=== PATIENT | female | born 1980 | race Caucasian/White ===

== ENCOUNTER 2023-06-23 01:00 | Outpatient (CLI) | payer OTHER, SELFPAY | END 2023-06-23 01:01 | disposition home or self-care (01) | LOC: NFLDREF 06-27 05:25 | PROVIDERS: Visit Provider Obstetrics & Gynecology | DX: O30.042 Twin pregnancy, dichorionic/diamniotic, second trimester (principal); Z3A.14 14 weeks gestation of pregnancy | CPT/HCPCS: 80053; 82570; 84156 ==

== ENCOUNTER 2023-06-30 07:19 | Outpatient (CLI) | payer OTHER, SELFPAY | END 2023-06-30 07:20 | disposition home or self-care (01) | PROVIDERS: Visit Provider Obstetrics & Gynecology | DX: Z87.59 Personal history of other complications of pregnancy, childbirth and the puerperium (principal) | CPT/HCPCS: 82570; 84156 ==

== ENCOUNTER 2023-08-30 08:11 | Outpatient (CLI) | payer OTHER, SELFPAY ==
--- NOTE | 2023-08-30 08:15 | CRLHL7_ITS ---
For Patients: As a result of the Century Cures Act, medical imaging exams and procedure reports are released immediately into your electronic medical record. You may view this report before your referring provider. If you have questions, please contact your health care provider. DI/DI TWIN GESTATION, GROWTH INDICATION: Third trimester scan, evaluate growth in a twin gestation. COMPARISON: 07/20/2023 TECHNIQUE: Real-time grayscale imaging of the twins was performed. FINDINGS: Sonographic imaging demonstrates a living twin intrauterine gestation. Twin A demonstrates a regular cardiac rate of 142 beats per minute. Twin A has a breech position. The placenta lies posterior. Amniotic fluid volume appears normal and the largest fluid pocket measures 4.9 cm. The estimated weight is 743 gm which lies at the 61st percentile. BPD 15th percentile. HC 26th percentile. AC 67th percentile. FL 46th percentile. The HC/AC ratio measures 1.08 range (1.04-1.22). Twin B demonstrates a regular cardiac rate of 133 beats per minute. Twin B has a vertex position. The placenta lies posterior. Amniotic fluid volume appears normal and the largest fluid pocket measures 6.0 cm. The estimated weight is 739 gm which lies at the 59th percentile. BPD 53rd percentile. HC 41st percentile. AC 67th percentile. FL 33rd percentile. The HC/AC ratio measures 1.10 range (1.04-1.22). IMPRESSION: Appropriate interval growth of the twins. Dictated by Marcial De Luna MD @ 08/30/2023 10:03:17 AM (Electronically Signed)
== END 2023-08-30 08:12 | disposition home or self-care (01) ==
LOC: US 08:13
PROVIDERS: Visit Provider Obstetrics & Gynecology
DX: O30.049 Twin pregnancy, dichorionic/diamniotic, unspecified trimester (principal)
CPT/HCPCS: 76816

== ENCOUNTER 2023-09-27 09:45 | Outpatient (CLI) | payer OTHER, SELFPAY ==
--- NOTE | 2023-09-27 09:45 | US_ITS ---
Patient: ANUM KAYE Facility:?[facility] Patient ID:?[id number] Site Patient ID:?[id number]. Site :?1980 Study:?US-OB Pelvis f/u growth TWINS-09/27/2023 10:47:53 AM Ordering Physician:?SUPPROMÁN Final Report: 3rd TRIMESTER TWIN GROWTH INDICATION: Third trimester scan, evaluate growth in a twin gestation. COMPARISON: 08/30/2023 TECHNIQUE: Real-time grayscale imaging of the twins was performed. FINDINGS: Sonographic imaging demonstrates a living twin intrauterine gestation. Twin A demonstrates a regular cardiac rate of 157 beats per minute. Twin A has a vertex position, maternal right. The placenta lies posterior. Amniotic fluid volume appears normal and the largest fluid pocket measures 4.4 cm. The estimated weight is 1338 gm which lies at the 64th percentile. The biometric indices all lie within normal range. The HC/AC ratio measures 1.07 range (0.99-1.21). Twin B demonstrates a regular cardiac rate of 144 beats per minute. Twin B has a vertex position, maternal left. The placenta lies posterior. Amniotic fluid volume appears normal and the largest fluid pocket measures 6.2 cm. The estimated weight is 1399 gm which lies at the 77th percentile. The biometric indices all lie within normal range. The HC/AC ratio measures 1.11 range (0.98-1.19). IMPRESSION: Appropriate interval growth of the twins. Dictated by Marcial De Luna MD @ 09/27/2023 11:04:07 AM Signed by:?Marcial De Luna MD @09/27/2023 11:04:07 AM (Electronic Signature)
== END 2023-09-27 09:46 | disposition home or self-care (01) ==
LOC: US 09:45
PROVIDERS: Visit Provider Obstetrics & Gynecology
DX: O30.043 Twin pregnancy, dichorionic/diamniotic, third trimester (principal)
CPT/HCPCS: 76816

== ENCOUNTER 2023-09-27 11:02 | Outpatient (CLI) | payer OTHER, SELFPAY | END 2023-09-27 11:03 | disposition home or self-care (01) | LOC: NFLDREF 11:03 | PROVIDERS: Visit Provider Obstetrics & Gynecology | DX: O30.043 Twin pregnancy, dichorionic/diamniotic, third trimester (principal); Z3A.28 28 weeks gestation of pregnancy | CPT/HCPCS: 86592; 86850; J2791 ==

== ENCOUNTER 2023-10-25 07:21 | Outpatient (CLI) | payer OTHER, SELFPAY ==
--- NOTE | 2023-10-25 07:15 | US_ITS ---
Patient: ANUM KAYE Facility:?[facility] Patient ID:?[id number] Site Patient ID:?[id number]. Site :?1980 Study:?US-OB Pelvis BPP w/growth, TWINS-10/25/2023 9:22:52 AM Ordering Physician:JUAN PABLO Final Report: OBSTETRICAL ULTRASOUND LIMITED - BIOPHYSICAL PROFILE, FOLLOW-UP INDICATION: Biophysical profile and growth check, twins. DOMINGO by LMP: 12/17/2023 Gestational age: 32 weeks 3 days COMPARISON: 09/27/2023, 08/30/2023 TECHNIQUE: Transabdominal obstetrical ultrasound. FINDINGS: Twin gestation. TWIN A: Cervix: Not visualized positioning: Vertex, right Amniotic fluid: 4.5 cm SDP BIOPHYSICAL PROFILE: Total score: 6/8 Gross body movements: 2 tone: 2 Respiratory activity: 0 Amniotic fluid SDP: 2 Placenta position: Posterior DOPPLERS: heart rate: 137 bpm BIOMETRY: BPD: 8.1 cm, 32 weeks 2 days, 39% HC: 30.3 cm, 33 weeks 4 days, 45% AC: 29.2 cm, 33 weeks 1 day, 71% FL: 6.1 cm, 31 weeks 6 days, 22% FL/AC Ratio: 21% HC/AC ratio: 1.0 EFW: 2039 grams, 4 lbs. 8 oz. age by this ultrasound: 32 weeks 5 days DOMINGO by this US: 12/15/2023 Percentile by DOMINGO: 50% Comments: Respiratory activity is seen, not for 30 seconds. Growth = 50%. TWIN B: Cervix: Not visualized positioning: Vertex, oblique left Amniotic fluid: 6.4 cm SDP BIOPHYSICAL PROFILE: Total score: 6/8 Gross body movements: 2 tone: 2 Respiratory activity: 0 Amniotic fluid SDP: 2 Placenta position: Posterior DOPPLERS: heart rate: 132 bpm BIOMETRY: BPD: 8.5 cm, 34 weeks 1 day, 87% HC: 32.0 cm, 36 weeks 1 day, 95% AC: 31.4 cm, 35 weeks 3 days, >97% FL: 6.2 cm, 32 weeks 2 days, 32% FL/AC Ratio: 20% HC/AC ratio: 1.0 EFW: 2440 grams, 5 lbs. 6 oz. age by this ultrasound: 34 weeks 4 days DOMINGO by this US: 12/02/2023 Percentile by DOMINGO: 94% Comments: Respiratory activity is seen, not for 30 seconds. Growth = 94%. IMPRESSION: 1. Abnormal biophysical profile score of 6/8 for both twins. 2. Measurements are consistent with dates for both twins. DAXA LIU M.D. Body/Diagnostic Radiologist [employer] [email or web address] NJG:cindy D& Transcribed: 1:[address]/Dictated by: Daxa Liu MD @ 10/26/2023 1:01:00 PM Signed by:?Daxa Liu MD @10/26/2023 1:58:46 PM (Electronic Signature)
== END 2023-10-25 07:22 | disposition home or self-care (01) ==
PROVIDERS: Visit Provider Obstetrics & Gynecology
DX: O30.043 Twin pregnancy, dichorionic/diamniotic, third trimester (principal); Z3A.32 32 weeks gestation of pregnancy
CPT/HCPCS: 76816; 76819

== ENCOUNTER 2023-11-01 08:16 | Outpatient (CLI) | payer OTHER, SELFPAY ==
--- NOTE | 2023-11-01 08:15 | US_ITS ---
Patient: ANUM KAYE Facility:?[facility] Patient ID:?[id number] Site Patient ID:?[id number]. Site :?1980 Study:?US-OB Pelvis TWIN BPP-11/01/2023 9:06:24 AM Ordering Physician:JENNY GAMEZ Final Report: INDICATION: TWIN , DI/DI TWINS COMPARISON: 10.25.23 TECHNIQUE: Real time tobias scale imaging of the twins was performed. Without non-stress testing. FINDINGS: Sonographic imaging demonstrates a twin living intrauterine gestation. TWIN A: Fetus demonstrates a regular cardiac rate of 135 beats per minute. Fetus has a cephalic position. The amniotic fluid volume appears normal and there is a single deepest pocket measurement of 5.3 cm. The fetus was active and demonstrated normal breathing movements. There was normal flexion and extension of the trunk and extremities. TWIN B: Fetus demonstrates a regular cardiac rate of 149 beats per minute. Fetus has a vertex position. The amniotic fluid volume appears normal and there is a single deepest pocket measurement of 8.0 cm. The fetus was active and demonstrated normal breathing movements. There was normal flexion and extension of the trunk and extremities. IMPRESSION: TWIN A: Normal biophysical profile score of 8 out of 8. TWIN B: Normal biophysical profile score of 8 out of 8. Dictated by Marcial De Luna MD @ 11/01/2023 8:38:09 PM Signed by:?Marcial De Luna MD @11/01/2023 8:38:09 PM (Electronic Signature)
== END 2023-11-01 08:17 | disposition home or self-care (01) ==
LOC: US 08:17
PROVIDERS: Visit Provider Obstetrics & Gynecology
DX: O30.049 Twin pregnancy, dichorionic/diamniotic, unspecified trimester (principal)
CPT/HCPCS: 76819

== ENCOUNTER 2023-11-10 09:11 | Outpatient (CLI) | payer OTHER, SELFPAY ==
--- NOTE | 2023-11-10 09:15 | US_ITS ---
Patient: ANUM KAYE Facility:?[facility] Patient ID:?[id number] Site Patient ID:?[id number] Site :?1980 Study:?US-OB Pelvis TWIN BPP-11/10/2023 10:21:42 AM Ordering Physician:JENNY GAMEZ Final Report: INDICATION: DI-DI TWIN COMPARISON: 11/01/2023 TECHNIQUE: Real time tobias scale imaging of the twin was performed. Without non-stress testing. FINDINGS: Sonographic imaging demonstrates a twin living intrauterine gestation. TWIN A: Fetus demonstrates a regular cardiac rate of 155 beats per minute. Fetus has a vertex position, maternal right. The amniotic fluid volume appears normal and there is a single deepest pocket measurement of 5.5 cm. The fetus was active and demonstrated normal breathing movements. There was normal flexion and extension of the trunk and extremities. TWIN B: Fetus demonstrates a regular cardiac rate of 134 beats per minute. Fetus has a transverse position, maternal left. The amniotic fluid volume appears normal and there is a single deepest pocket measurement of 5.4 cm. The fetus was active and demonstrated normal breathing movements. There was normal flexion and extension of the trunk and extremities. IMPRESSION: Twin A: Normal biophysical profile score of 8 out of 8. Twin B: Normal biophysical profile score of 8 out of 8. Dictated by Marcial De Luna MD @ 11/16/2023 10:58:21 AM Signed by:?Marcial De Luna MD @11/16/2023 10:58:21 AM (Electronic Signature)
== END 2023-11-10 09:12 | disposition home or self-care (01) ==
PROVIDERS: Visit Provider Obstetrics & Gynecology
DX: O30.049 Twin pregnancy, dichorionic/diamniotic, unspecified trimester (principal)
CPT/HCPCS: 76819

== ENCOUNTER 2023-11-10 10:43 | Outpatient (CLI) | payer OTHER, SELFPAY ==
[2023-11-11 12:13] LABS: Strep B DNA Probe Negative (Negative)
[2023-11-11 12:31] LABS: Strep B Susceptibility Needed? No
== END 2023-11-10 10:44 | disposition home or self-care (01) ==
LOC: NFLDREF 10:44
PROVIDERS: Visit Provider Obstetrics & Gynecology
DX: O09.523 Supervision of elderly multigravida, third trimester (principal); Z3A.34 34 weeks gestation of pregnancy
CPT/HCPCS: 87081; 87653

== ENCOUNTER 2023-11-11 14:17 | Outpatient (CLI) | payer OTHER, SELFPAY ==
[2023-11-11] VITALS (8 sets, daily range): BP systolic 117–134; BP diastolic 72–80; PULSE 87–102; RESP 16; TEMP 36.4
[2023-11-11 14:45] LABS: Hematocrit 33.7 % (33.0-51.0); Hemoglobin* 12.1 gm/dL (12.0-16.0); Mean Corpuscular HGB Conc 36 gm/dL (32-36); Mean Corpuscular Hemoglobin 30 pg (26-34); Mean Corpuscular Volume 85 fL (80-100); Platelet Count* 185 K/uL (140-440); Red Blood Count 3.99 m/uL (4.00-5.20); White Blood Count* 9.19 K/uL (4.50-11.00)
[2023-11-11 14:50] LABS: Slide Review Reflex No
[2023-11-11 15:01] LABS: Alanine Aminotransferase* 60 U/L (4-35); Aspartate Amino Transferase* 48 U/L (12-35); Blood Urea Nitrogen* 6 mg/dL (5-24); Creatinine* 0.4 mg/dL (0.5-1.5); Estimated Glomerular Filt Rate 127 ml/min
[2023-11-11 15:32] LABS: Creatinine Urine 12.7 mg/dL; Total Protein Urine 24 mg/dL
[2023-11-11] MEDS: BETAMETHASONE SOD PHOS/ACETATE 6 MG/ML ML 12 MG IM (16:01)
--- NOTE | 2023-11-11 16:34 | PC.OBNST ---
NST Note NST Note Start: 11/11/23 14:20 Freq: ONCE Status: Active Protocol: Document 11/11/23 16:32 BAW (Rec: 11/11/23 16:34 BAW [id number]) NST Note 11 Para (# of births) 7 EDC 12/17/23 Gestational Age In Weeks & Days 34 Weeks & 6 Days High Risk Factors High Blood Pressure - Gestational,Advanced Maternal Age,Twins Patient Presented with Complaint(s) of Other Other Complaints Rule out PreE Reactive Yes Appropriate for Gestational Age Yes BERTRAND Torres RNC Date 11/11/23 Reactive Yes Appropriate for Gestational Age Yes BERTRAND Mojica RN Date 11/11/23 OB NST charge Yes Complete NST Note via Write Note Yes The provider's electronic signature indicates the NST is reactive/appropriate for gestational age. *Note to provider: If an addendum is required, open the patient's chart and click on the note under the Nurse/Allied Health tab.
== END 2023-11-11 16:21 | disposition home or self-care (01) ==
LOC: OB OUT 14:17 → OB 14:18
PROVIDERS: Obstetrics & Gynecology; Visit Provider Obstetrics & Gynecology
DX: O26.893 Other specified pregnancy related conditions, third trimester (principal); R03.0 Elevated blood-pressure reading, without diagnosis of hypertension; O30.043 Twin pregnancy, dichorionic/diamniotic, third trimester; Z3A.34 34 weeks gestation of pregnancy
CPT/HCPCS: 36415; 59025; 82565; 82570; 84156; 84450; 84460; 84520; 85027; G0463; J0702

== ENCOUNTER 2023-11-12 14:20 | Outpatient (CLI) | payer OTHER, SELFPAY | END 2023-11-12 14:21 | disposition home or self-care (01) | PROVIDERS: PCP Obstetrics & Gynecology; Visit Provider Obstetrics & Gynecology | DX: O09.523 Supervision of elderly multigravida, third trimester (principal); O30.043 Twin pregnancy, dichorionic/diamniotic, third trimester; Z3A.34 34 weeks gestation of pregnancy | CPT/HCPCS: 80074; 82565; 82570; 84156; 84450; 84460; 84520; 86850; 86900; 86901 ==

== ENCOUNTER 2023-11-12 17:24 | Inpatient (IN) | payer OTHER, SELFPAY ==
[2023-11-12] VITALS (78 sets, daily range): BP systolic 112–144; BP diastolic 57–86; PULSE 93–119; RESP 16; TEMP 36.7–37; O2SAT 97–100
--- NOTE | 2023-11-12 17:41 | PM.OBHPLI ---
OB - H&P: HPI Labor/Induction History of Present Illness Time Seen by Provider: 17:41 Date Seen: 11/12/23 Chief Complaint: Juana is a 43yo who was sent to triage for BP monitoring in the setting of worsening transaminitis with elevated BP without hypertension at 35w0d. is complicated by dichorionic diamniotic twin gestation, grand multiparity, history of hemorrhage, history of hypertensive disorder of , advanced maternal age, history hemorrhage, and GERD. Juana has been feeling unwell for the last several days. Last week she notes a viral gastroenteritis went through her household. She was feeling better, until she had return of nausea and feeling off the last few days. Specifically, she has noted intermittent episodes where she has tingling in her hands or feet and worsening GERD. She had 1 mild range blood pressure on 11/09. She was seen in close follow-up yesterday, ultimately transferred to triage where she was normotensive but had note of transaminitis. She return to clinic today for repeat preeclampsia labs and nurse blood pressure check. There, her blood pressure remained normal but transaminitis was noted to significantly rise to double the upper limit of normal. I visit with Christiane joya recommended she be transferred to center for blood pressure monitoring given likely of all vein preeclampsia with severe features. She was monitored in triage for just over an hour, when she met criteria visually for preeclampsia with severe features with a 2nd mild range blood pressure greater than 4 hours apart. Juana denies headache, vision changes or right upper quadrant pain. She denies regular/painful uterine contractions, vaginal bleeding or leaking of fluids. Notes some decreased movement of her babies throughout the course of the day, active at present. Chief complaint: Maternity Specific Issues/Plans 1. Dichorionic Diamniotic twin gestation 2. History of preE: [x] MFM consult with early US - normal NT x2, declined genetic screening [x] MFM recommendations are as follows: [x ] level 2 US at 18-20 weeks: 07/20/23: Normal anatomy x2 [x] continue ASA 81mg [x] CMP, CBC and urine P/C ratio at next visit: collected on 06/23/23. Baseline P/C 06/23= 2.90, Repeat on 06/30 0.9. 06/30/23: Baseline 24hr urine protein = 856mg - q2w visits in the third trimester, weekly beginning 32-34 weeks - Growth US every 4 weeks - weekly testing starting at 36 weeks - Medically indicated delivery at 38 weeks, sooner as needed [x] Nephrology Consult: BP monitoring (meds if 130/80), low salt diet, repeat 24 hour in August [x] 11/10/2023 Elevated BP at home, L&D on 11/10: normal BP. hgb 12.1, plts 185, AST 48, ALT 60, BUN 6, Creat 0.4, Urine P/C 1.8 Repeat 24hour urine for protien: [] Repeat labs on 11/12/2023 BMTZ #1 11/11/2023 in L&D BMTZ #2 11/12/2023 in clinic Needs 2x/week testing and weekly labs if she remains undelivered. 3. Grandmultiparity: Has 7 children. 4. Advanced Maternal Age 5.History of loss, attributed to low progesterone - Pt is on progesterone supplementation, 200mg micronized progesterone daily, managed by a remote clinic in [place]. - Discontinue at 36 weeks -2019, blighted ovum with excessive vaginal bleeding, had D&C performed, uncomplicated surgery and pathology confirmed immature chorionic villi 7. Varicella status unknown - please add IgG to subsequent lab draw - Patient declines FYI patient is self pay with supplement via [employer] co[employer] *Strongly encouraged enrolling in insurance* Please provide [place] Sure pamphlet at next visit. - Patient declines information Tdap: declined. She does not want to be asked again. contraception: None Meds Home Medications and Allergies Home Medications Medication Instructions Recorded Confirmed Type aspirin 81 mg capsule 81 mg PO QDAY 05/27/23 11/11/23 History docosahexaenoic acid 200 mg 200 mg PO DAILY 05/27/23 11/11/23 History capsule ( DHA) ferrous gluconate 240 mg (27 mg 240 mg PO QDAY 05/27/23 11/11/23 History iron) tablet (Ferate) progesterone micronized 200 mg 200 mg PO QHS 05/27/23 11/11/23 History capsule calcium carbonate (Calcium 600) 600 mg PO QDAY 07/21/23 11/11/23 History Allergies Allergy/AdvReac Type Severity Reaction Status Date / Time No Known Drug Allergies Allergy Verified 11/11/23 14:28 OB - H&P: Exam Physical Exam: Vital signs: Temp Pulse Resp BP Pulse Ox 98.6 F 96 16 142/86 H 99 11/12/23 16:44 11/12/23 17:14 11/12/23 16:44 11/12/23 17:14 11/12/23 16:45 Narrative: General: Alert and oriented, in no acute distress Psych: Appropriate mood and affect Heart: Regular rate and rhythm, no rubs murmurs or gallops Lungs: Clear to posterior auscultation without wheezes rales or crackles Abdomen: Gravid. Slight tenderness to deep palpation in the right upper quadrant. Bedside ultrasound performed, twins are cephalic/cephalic. Last growth ultrasound was completed on 10/25/2023, with twin A measuring 2039 g and twin B measuring 2440 g. 16% discordance. Cervix: 08/21/-3, s/p cook catheter placement heart rate Twin A: Baseline 130 beats per minute, moderate variability, accelerations present, decelerations absent FHR Twin B: Baseline 125 beats per minute, moderate variability, accelerations present, decelerations absent [place]: Alfa irregularly, about once every 15 minutes OB - Problem Based A/P Additional Plan (1) Preeclampsia, severe: Status: Acute (2) Dichorionic diamniotic twin gestation: Status: Acute (3) Advanced maternal age (AMA) in : Status: Acute (4) Grand multiparity: Status: Acute (5) History of pre-eclampsia: Status: Acute (6) Transaminitis: Status: Acute (7) History of hemorrhage: Status: Acute Plan Juana is a 43yo admitted at 35w0d GA for IOL in the setting of preeclampsia with SF (transaminitis). is complicated by dichorionic diamniotic twin gestation, grand multiparity, history of hemorrhage, history of hypertensive disorder of , advanced maternal age, history hemorrhage, and GERD. Juana now meets criteria for preeclampsia with severe features, given to mild range blood pressures by greater than 4 hours and transaminitis to double the upper limit of normal. - Plan to admit to Labor and delivery and initiate magnesium sulfate for seizure prophylaxis. Explained this will be continued intrapartum in for 24 hours post delivery. - Serial HELLP labs Q6H - We have started her induction of labor with cook catheter (60/60cc) given cervical exam of 3. Plan to start pitocin overnight. We reviewed risks and benefits of twin vaginal delivery. At present, her twins are cephalic/cephalic. She understands we will immediately assess presentation of twin B after delivery of twin A. If non-cephalic, she understands possible breech extraction and risks of head entrapment and life-saving measures that could be completed (cervical incisions, Piper forceps, delivery, etc.) She is a good candidate for breech extraction if required, given multiparity, EFW >1500g and discordance of <20%. - Patient plans regional anesthetic for pain control - s/p BMZ #2 in the clinic at 1600 - GBS negative - Active type and screen drawn, plan 2 IVs and active management of the 3rd stage in the setting of history of hemorrhage, grand multiparity and multi- gestation. - Pediatrics team to be made aware of delivery. I explained that her babies will be assessed post delivery, where there is a chance that they may still need to be transferred if NICU level cares were required. Explained anticipated hospitalization for Juana would be for 48 hours post delivery, given preeclampsia with severe features. She expressed understanding and is agreement plan.
[2023-11-12] MEDS: LACTATED RINGERS 1000 ML 1,000 ML 75 ML IV (17:53)
[2023-11-12] MEDS: MAGNESIUM IV 4 GM/100 ML PIGGYBACK IVPB (17:54)
[2023-11-12] MEDS: MAGNESIUM Infusion 40 GM/1,000 ML IV.SOLN IVPB (18:29)
[2023-11-12 21:10] LABS: Hematocrit 33.6 % (33.0-51.0); Hemoglobin* 12.1 gm/dL (12.0-16.0); Mean Corpuscular HGB Conc 36 gm/dL (32-36); Mean Corpuscular Hemoglobin 30 pg (26-34); Mean Corpuscular Volume 84 fL (80-100); Platelet Count* 209 K/uL (140-440); Red Blood Count 3.98 m/uL (4.00-5.20); White Blood Count* 13.09 K/uL (4.50-11.00)
[2023-11-12 21:19] LABS: Slide Review Reflex No
[2023-11-12 21:29] LABS: Alanine Aminotransferase* 142 U/L (4-35); Aspartate Amino Transferase* 96 U/L (12-35); Blood Urea Nitrogen* 4 mg/dL (5-24); Creatinine* 0.4 mg/dL (0.5-1.5); Estimated Glomerular Filt Rate 127 ml/min
[2023-11-12 21:53] LABS: Magnesium* 4.3 mg/dL (1.5-2.6)
[2023-11-13] VITALS (176 sets, daily range): BP systolic 101–144; BP diastolic 55–87; PULSE 76–130; RESP 16–18; TEMP 36.4–36.8; O2SAT 92–100
[2023-11-13] MEDS: OMEPRAZOLE 20 MG CAPSULE DR 40 MG PO (00:02)
[2023-11-13] MEDS: OXYTOCIN 30 unit/500 ML in NS 30 UNIT/500 ML BAG IVPB (01:42)
[2023-11-13 03:20] LABS: Hematocrit 31.5 % (33.0-51.0); Hemoglobin* 11.3 gm/dL (12.0-16.0); Mean Corpuscular HGB Conc 36 gm/dL (32-36); Mean Corpuscular Hemoglobin 31 pg (26-34); Mean Corpuscular Volume 85 fL (80-100); Platelet Count* 207 K/uL (140-440); Red Blood Count 3.69 m/uL (4.00-5.20); White Blood Count* 11.53 K/uL (4.50-11.00)
[2023-11-13 03:23] LABS: Slide Review Reflex No
[2023-11-13 03:30] LABS: Alanine Aminotransferase* 187 U/L (4-35); Aspartate Amino Transferase* 119 U/L (12-35); Blood Urea Nitrogen* 3 mg/dL (5-24); Creatinine* 0.4 mg/dL (0.5-1.5); Estimated Glomerular Filt Rate 127 ml/min
[2023-11-13] MEDS: LACTATED RINGERS 1000 ML 1,000 ML 75 ML IV (07:22)
--- NOTE | 2023-11-13 08:10 | P.OBPN_ITS ---
Subjective Time Seen by Provider: 08:10 Date Seen: 11/13/23 Narrative: Subjective: 11 para 7037. Induction of labor at 35 weeks 1 day gestation for severe preeclampsia by liver transaminase elevation, twins. Patient is comfortable without an epidural. She has been having contractions every 10-12 minutes. Pitocin: 8 milliunits/minute. Vital signs: Per electronic medical record. EFM: Twin A: Baseline 130s, positive accelerations, negative decelerations, moderate variability, reactive. Category 1. Twin B: Baseline 130, positive accelerations, negative decelerations, moderate variability, reactive. Category 1. [place]: Contractions every 8-12 minutes. SVE: Deferred Labs at 3:00 a.m. today: Hemoglobin 11.3, platelets 207, BUN 3, creatinine 0.4, AST 119 (96), ALT 187 (142). Assessment: 43-year-old 11 para 7 at 35 weeks 1 days gestation undergoing induction of labor due to preeclampsia. Plan: 1. Continue Pitocin per labor induction protocol. 2. Planning for labor analgesia: She is planning on having the epidural catheter placed prior to my rupturing her membranes and then have it dosed when she has painful contractions. Also planning on going to the operating room for delivery relatively early in the active phase as she has a history of very short active phase and stage II with her last 3 children. 3. Adding comprehensive metabolic panel to her next lab draw. Objective Vital Signs: Last Vital Signs Temp 97.9 F 11/13/23 07:30 Pulse 101 H 11/13/23 07:59 Resp 16 11/13/23 00:59 BP 125/75 11/13/23 07:59 Pulse Ox 100 11/13/23 08:08
[2023-11-13] MEDS: SODIUM CHLORIDE 0.9 % (FLUSH) 10 ML SYRINGE IVF (09:02)
[2023-11-13 09:05] LABS: Hematocrit 33.6 % (33.0-51.0); Hemoglobin* 11.9 gm/dL (12.0-16.0); Mean Corpuscular HGB Conc 35 gm/dL (32-36); Mean Corpuscular Hemoglobin 30 pg (26-34); Mean Corpuscular Volume 86 fL (80-100); Platelet Count* 206 K/uL (140-440); Red Blood Count 3.91 m/uL (4.00-5.20); White Blood Count* 11.94 K/uL (4.50-11.00)
[2023-11-13 09:08] LABS: Slide Review Reflex Yes
[2023-11-13 09:18] LABS: Chloride* 103 mmol/L (96-114)
[2023-11-13 09:19] LABS: Albumin* 3.3 g/dL (3.3-5.0); Potassium* 3.4 mmol/L (3.6-5.1); Sodium* 127 mmol/L (135-149)
[2023-11-13 09:22] LABS: Alanine Aminotransferase* 244 U/L (4-35); Alkaline Phosphatase* 145 U/L (40-150); Anion Gap 4 mEq/L (7-15); Aspartate Amino Transferase* 150 U/L (12-35); Bilirubin Total* 0.4 mg/dL (0.1-1.5); Blood Urea Nitrogen* 2 mg/dL (5-24); Carbon Dioxide* 20 mmol/L (20-32); Creatinine* 0.4 mg/dL (0.5-1.5); Est. Creatinine Clearance* 158.21; Estimated Glomerular Filt Rate 127 ml/min; Total Protein* 5.9 g/dL (6.0-8.3)
[2023-11-13 09:23] LABS: Alanine Aminotransferase* 240 U/L (4-35); Aspartate Amino Transferase* 151 U/L (12-35); Blood Urea Nitrogen* 2 mg/dL (5-24); Calcium* 6.4 mg/dL (8.4-10.6); Creatinine* 0.4 mg/dL (0.5-1.5); Est. Creatinine Clearance* 158.21; Estimated Glomerular Filt Rate 127 ml/min; Glucose* 100 mg/dL (60-115)
[2023-11-13 09:27] LABS: Magnesium* 5.9 mg/dL (1.5-2.6)
--- NOTE | 2023-11-13 09:46 | P.ANBPRC_ITS ---
PFSH PFSH Social History What is your current living situation?: I presently have a place to live Problems where you live: no known problems In the past 12 months, utilities in danger of being shut off: no In past 12 months, lack of transportation kept you from medical appts, meetings, work, or getting things needed for daily living: no In the past 12 mos, have been you worried that your food would run out before you had money to buy more?: never true In the past 12 mos, the food you bought just didn't last and you didn't have money to buy more?: never true Smoking Status: Never smoker How often does anyone, including family, friends and others, physically hurt you : never How often does anyone, including family, friends and others, insult or talk down to you: never How often does anyone, including family, friends and others, threaten you with harm: never How often does anyone, including family, friends and others, scream or curse at you: never Little interest or pleasure in doing things: not at all Feeling down, depressed, or hopeless: not at all Meds Home Medications and Allergies Home Medications Medication Instructions Recorded Confirmed Type aspirin 81 mg capsule 81 mg PO QDAY 05/27/23 11/12/23 History docosahexaenoic acid 200 mg 200 mg PO DAILY 05/27/23 11/12/23 History capsule ( DHA) ferrous gluconate 240 mg (27 mg 240 mg PO QDAY 05/27/23 11/12/23 History iron) tablet (Ferate) progesterone micronized 200 mg 200 mg PO QHS 05/27/23 11/12/23 History capsule calcium carbonate (Calcium 600) 600 mg PO QDAY 07/21/23 11/12/23 History Allergies Allergy/AdvReac Type Severity Reaction Status Date / Time No Known Drug Allergies Allergy Verified 11/11/23 14:28 Results Labs Labs: Laboratory Results - last 24 hr 11/12/23 11/12/23 11/13/23 16:50 21:03 03:05 WBC 13.09 H 11.53 H RBC 3.98 L 3.69 L Hgb 12.1 11.3 L Hct 33.6 31.5 L MCV 84 85 MCH 30 31 MCHC 36 36 Plt Count 209 207 Sodium Potassium Chloride Carbon Dioxide Anion Gap BUN 4 L 3 L Creatinine 0.4 L 0.4 L Estimated Creat Clear Estimated GFR 127 127 Glucose Calcium Magnesium 4.3 H* 5.0 H* Total Bilirubin AST 96 H 119 H ALT 142 H 187 H Alkaline Phosphatase Total Protein Albumin Hepatitis A IgM Ab Cancelled Hep Bs Antigen Cancelled Hep B Core IgM Ab Cancelled Hep C Ab Index (STEPHAN) Cancelled Hep C Ab Interp STEPHAN Cancelled Hepatitis Interpret Cancelled Blood Type A Negative Antibody Screen POSITIVE Antibody Identification Anti-D 11/13/23 11/13/23 11/13/23 09:00 09:00 09:00 WBC 11.94 H RBC 3.91 L Hgb 11.9 L Hct 33.6 MCV 86 MCH 30 MCHC 35 Plt Count 206 Sodium 127 L Potassium 3.4 L Chloride 103 Carbon Dioxide 20 Anion Gap 4 L BUN 2 L 2 L Creatinine 0.4 L 0.4 L Estimated Creat Clear 158.21 Estimated GFR Glucose Calcium Magnesium Total Bilirubin AST ALT Alkaline Phosphatase Total Protein Albumin Hepatitis A IgM Ab Hep Bs Antigen Hep B Core IgM Ab Hep C Ab Index (STEPHAN) Hep C Ab Interp STEPHAN Hepatitis Interpret Blood Type Antibody Screen Antibody Identification 11/13/23 11/13/23 11/13/23 09:00 09:00 09:00 WBC RBC Hgb Hct MCV MCH MCHC Plt Count Sodium Potassium Chloride Carbon Dioxide Anion Gap BUN Creatinine Estimated Creat Clear 158.21 Estimated GFR 127 127 Glucose 100 Calcium 6.4 L Magnesium 5.9 H* Total Bilirubin 0.4 AST 151 H 150 H ALT 240 H Alkaline Phosphatase Total Protein Albumin Hepatitis A IgM Ab Hep Bs Antigen Hep B Core IgM Ab Hep C Ab Index (STEPHAN) Hep C Ab Interp STEPHAN Hepatitis Interpret Blood Type Antibody Screen Antibody Identification 11/13/23 09:00 WBC RBC Hgb Hct MCV MCH MCHC Plt Count Sodium Potassium Chloride Carbon Dioxide Anion Gap BUN Creatinine Estimated Creat Clear Estimated GFR Glucose Calcium Magnesium Total Bilirubin AST ALT 244 H Alkaline Phosphatase 145 Total Protein 5.9 L Albumin 3.3 Hepatitis A IgM Ab Hep Bs Antigen Hep B Core IgM Ab Hep C Ab Index (STEPHAN) Hep C Ab Interp STEPHAN Hepatitis Interpret Blood Type Antibody Screen Antibody Identification Vital Signs Vital Signs: Last Vital Signs Temp 97.9 F 11/13/23 07:30 Pulse 114 H 11/13/23 09:35 Resp 16 11/13/23 00:59 BP 121/71 11/13/23 09:35 Pulse Ox 98 11/13/23 09:31 Weight: 79.424 kg Height: 162.56 cm Anesthesia Procedures Epidural Insertion Patient Location: OB Start Time: :05 Stop Time: 09:30 Start Date: 11/13/23 Stop Date: 11/13/23 Reason for Block: procedure for pain Patient Position: sitting Performed By: Salomón Cheek Preanesthetic Checklist: IV checked, risks and benefits discussed, monitors and equipment checked, pre-op evaluation, timeout performed and anesthesia consent Prep: chlorhexidine gluconate Monitoring: blood pressure monitoring, continuous pulse oximetry and heart rate Approach: midline Vertebral Space: lumbar (1-5) Epidural Technique: YOEL saline Needle Type: Tuohy needle Injection Technique: continuous catheter Needle gauge: 17 Needle Length (cm): 10 cm Needle Insertion Depth (cm): 6 Catheter Gauge: 19 Catheter Type: multi-orifice Catheter at skin depth (cm): 12 Test Dose Result: negative (Did not load epidural or start infusion at time of placement due to patient request. ) and lidocaine 1.5% with epinephrine 1 to 200,000
[2023-11-13 12:00] LABS: Slide Review Acceptable Review (Acceptable)
[2023-11-13] MEDS: CALCIUM CARBONATE 500 MG CHEW PO (12:13)
[2023-11-13] MEDS: TRANEXAMIC ACID 100 MG/ML INJ 1000 MG IV (13:33)
[2023-11-13] MEDS: MAGNESIUM Infusion 40 GM/1,000 ML IV.SOLN IVPB (14:40)
[2023-11-13] MEDS: LIDOCAINE 2% (PF) 5 ML VIAL EPIDURAL (15:15)
[2023-11-13] MEDS: miSOPROStoL 800 MCG/4 TABLET PR (15:38)
[2023-11-13] MEDS: LOPERAMIDE HCL 2 MG CAPSULE 4 MG PO (15:40)
[2023-11-13] MEDS: dexAMETHasone 4 MG/ML VIAL IV (16:05)
[2023-11-13 16:12] LABS: Hematocrit 32.2 % (33.0-51.0); Hemoglobin* 11.3 gm/dL (12.0-16.0); Mean Corpuscular HGB Conc 35 gm/dL (32-36); Mean Corpuscular Hemoglobin 30 pg (26-34); Mean Corpuscular Volume 86 fL (80-100); Platelet Count* 215 K/uL (140-440); Red Blood Count 3.73 m/uL (4.00-5.20)
[2023-11-13] MEDS: ACETAMINOPHEN 500 MG TABLET 1000 MG PO (16:20)
--- NOTE | 2023-11-13 16:23 | W.PM.VAGD1_ITS ---
Procedure Delivery date: 11/13/23 Procedure Done: Global Procedure Details: Procedures Operation Date: 11/13/23 12:15 <No data on this case meets the specified criteria> Juana is a 43 year-old G 11 P 7037 now P 8039 admitted on 11/12/2023 at [address] e[address], 0 Days gestation for induction of labor due to severe preeclampsia by liver transaminases. Di/di twins Twin A: AROM occurred at 10:36 a.m. on 11/13/2023 with clear fluid. Twin B: AROM occurred at 3:28 p.m. on 11/13/2023 with clear fluid Labor Analgesia: Epidural for twin B, no analgesia for twin a Pitocin: Yes Labor onset: 11/13/2023 at 11:52 a.m.. Complete: 11/13/2023 at 2:56 p.m.. Pushin11/13/2023 at 2:56 p.m.. heart tones during second stage were: Category 1. Twin A: At 2:57 p.m. a viable male infant delivered in vertex direct OA presentation over intact perineum via spontaneous vaginal delivery. The was placed on maternal abdomen. Cord was clamped and cut after a 30-60 second delay. Nose and mouth were bulb suctioned. Infant weight 5 lb 0 oz. 8 at 1 minute and 9 at 5 minutes. Shoulder dystocia: No. Nuchal cord: No. The patient had her epidural dosed after twin a was delivered to give analgesia for total breech extraction. Bedside ultrasound was performed to show twin B in footling breech presentation after delivery of twin a. Heart rate for twin B in the 2nd stage was category 2 with moderate variability and variable decelera tions to the 90s during contractions with immediate return to baseline after the contraction completed. Twin B: At 3:31 p.m. a viable male delivered from footling breech presentation over intact perineum by total breech extraction . The infant was placed on maternal abdomen. Cord was clamped and cut after a 10 second delay. Nose and mouth were bulb suctioned. Infant weight 5 lb 11 oz. 8 at 1 minute and 9 at 5 minutes. Shoulder dystocia: No. Nuchal cord: Double nuchal cord that was reduced prior to delivery the infant's head. Placenta delivered spontaneously and complete at 3:33 p.m. with a three-vessel cord x2. After the placenta was delivered there is noted to be lower uterine segment atony. Patient received 1 g IV TXA, 30 units Pitocin in 500 mL IV fluid at 350 mL/hour, Cytotec 800 mg p.r., Hemabate 0.25 mg IM a Ana system was placed and was noted to have a total of 600 mL of blood loss in the Ana +270 mL in her under buttocks drape. Laceration(s): None. Blood loss: 870 mL. Blood loss measurement type: Quantitative Sponge and needles counts are correct. Specimen: Placenta Mother and were stable after delivery. Infant's names: Pending The patient is planning on breast feeding.
[2023-11-13 16:31] LABS: Slide Review Reflex No
[2023-11-13] MEDS: LACTATED RINGERS 1000 ML 1,000 ML 60 ML IV (16:31)
[2023-11-13] MEDS: OXYTOCIN 30 unit/500 ML in NS 30 UNIT/500 ML BAG 300 UNIT IVPB (16:31)
[2023-11-13 16:40] LABS: Fibrinogen* 261 mg/dL (200-450); Partial Thromboplastin Time* 28 Seconds (23-33)
[2023-11-13 16:41] LABS: INR 0.94 (0.91-1.10); Prothrombin Time 13.2 Seconds
[2023-11-13 16:42] LABS: Aspartate Amino Transferase* 183 U/L (12-35); Creatinine* 0.4 mg/dL (0.5-1.5); Est. Creatinine Clearance* 158.21; Estimated Glomerular Filt Rate 127 ml/min
[2023-11-13 16:43] LABS: Alanine Aminotransferase* 296 U/L (4-35)
[2023-11-13 16:50] LABS: Blood Urea Nitrogen* < 2 mg/dL (5-24)
[2023-11-13 16:51] LABS: Magnesium* 5.8 mg/dL (1.5-2.6)
[2023-11-13] MEDS: CARBOPROST TROMETHAMINE 250 MCG/ML INJ IM (21:20)
[2023-11-13] MEDS: CEFAZOLIN 2 GM INJ IVP (21:20)
[2023-11-14] VITALS (7 sets, daily range): BP systolic 105–123; BP diastolic 61–77; PULSE 62–100; RESP 16–20; TEMP 36.6–37.3; O2SAT 95–98
[2023-11-14 00:48] LABS: Creatinine* 0.4 mg/dL (0.5-1.5); Est. Creatinine Clearance* 158.21; Estimated Glomerular Filt Rate 127 ml/min
[2023-11-14 00:49] LABS: Alanine Aminotransferase* 305 U/L (4-35); Aspartate Amino Transferase* 241 U/L (12-35)
[2023-11-14 00:59] LABS: Hematocrit 32.1 % (33.0-51.0); Mean Corpuscular HGB Conc 34 gm/dL (32-36); Mean Corpuscular Hemoglobin 30 pg (26-34); Mean Corpuscular Volume 88 fL (80-100); Platelet Count* 262 K/uL (140-440); Red Blood Count 3.65 m/uL (4.00-5.20)
[2023-11-14 04:29] LABS: Blood Urea Nitrogen* < 2 mg/dL (5-24)
[2023-11-14 04:30] LABS: Slide Review Reflex No
[2023-11-14 05:28] LABS: Hematocrit 27.6 % (33.0-51.0); Hemoglobin* 9.6 gm/dL (12.0-16.0); Mean Corpuscular HGB Conc 35 gm/dL (32-36); Mean Corpuscular Hemoglobin 31 pg (26-34); Mean Corpuscular Volume 88 fL (80-100); Platelet Count* 223 K/uL (140-440); Red Blood Count 3.13 m/uL (4.00-5.20); White Blood Count* 17.31 K/uL (4.50-11.00)
[2023-11-14 05:31] LABS: Slide Review Reflex No
[2023-11-14 05:44] LABS: Alanine Aminotransferase* 251 U/L (4-35); Aspartate Amino Transferase* 136 U/L (12-35); Creatinine* 0.4 mg/dL (0.5-1.5); Est. Creatinine Clearance* 158.21; Estimated Glomerular Filt Rate 127 ml/min
[2023-11-14 05:53] LABS: Blood Urea Nitrogen* < 2 mg/dL (5-24)
[2023-11-14 06:29] LABS: Hemoglobin* 9.1 gm/dL (12.0-16.0)
[2023-11-14 06:47] LABS: Magnesium* 6.6 mg/dL (1.5-2.6)
[2023-11-14 07:09] LABS: Magnesium* 5.9 mg/dL (1.5-2.6)
--- NOTE | 2023-11-14 09:16 | PM.GYNPNNOR ---
Progress Note: A&P Assessment and plan (1) Preeclampsia, severe: Status: Acute Plan 1. Continue magnesium until 3:31 p.m. 2. Expect discharge tomorrow. 3. Patient is otherwise doing well. VACUUM CLEANER REPAIR PERSON- PN:Subj Non-OR Subjective Time Seen by Provider: 09:16 Date Seen: 11/14/23 Interval history: The patient is feeling somewhat weak and dizzy this morning from the magnesium. I reviewed with her the reason for continuing the magnesium is for preventing seizures and is running at 1 gram/hour rather than 2 grams/hour to help prevent her from having significant side effects. Reviewed the delivery from yesterday and the hemorrhage she had in all of the medicines that she received and reasons for receiving them. She states that she has been having some problems with nightmares in feeling that her balance is not quite right when she is up also from magnesium. She states her pain is well controlled. She has been tolerating a regular diet and passing flatus. All of her questions were answered to the best of my ability. I ordered an iron supplement as her hemoglobin this morning was 9.1. I also reordered her omeprazole as she has been having some reflux symptoms. VACUUM CLEANER REPAIR PERSON-PN: Obj Exam Physical Exam: Vital signs: Temp Pulse Resp BP Pulse Ox O2 Del Method 98.4 F 91 18 117/73 95 Room Air 11/14/23 07:15 11/14/23 07:15 11/14/23 07:15 11/14/23 07:15 11/14/23 07:15 11/14/23 07:15 Narrative: GENERAL APPEARANCE: Pleasant, [race], well-groomed woman in no acute distress. VITAL SIGNS: as noted in nursing notes HEAD: Normocephalic, atraumatic. THYROID: no masses, nodularity, tenderness or enlargement. LUNGS: Clear to auscultation bilaterally without wheezes, rales or rhonchi. HEART: Regular rate and rhythm with normal S1 and S2. No gallop, rub or murmur. ABDOMEN: Fundus firm at the umbilicus in the midline Soft, nontender, nondistended, with normal bowels sounds throughout. EXTREMITIES: No cyanosis, clubbing, or edema. No varicosities. NEUROLOGIC: Normal gait and balance. Normal deep tendon reflexes at bilateral patella 2+/2, equal without clonus. PSYCHIATRIC: alert and oriented x3. Normal speech pattern, eye contact and affect. SKIN: Warm, dry, and well perfused. Good turgor. No lesions, nodules or rashes. VACUUM CLEANER REPAIR PERSON - PN: Obj Data Labs Labs: Laboratory Results - last 24 hr 11/12/23 11/13/23 11/13/23 16:50 09:00 09:00 WBC RBC Hgb Hct MCV MCH MCHC Plt Count Diff Slide Review Acceptable Review INR APTT Fibrinogen Sodium 127 L Potassium 3.4 L Chloride 103 Carbon Dioxide 20 Anion Gap 4 L BUN 2 L 2 L Creatinine 0.4 L Estimated Creat Clear Estimated GFR Glucose Calcium Magnesium Total Bilirubin AST ALT Alkaline Phosphatase Total Protein Albumin Blood Type A Negative Antibody Screen POSITIVE Antibody Identification Anti-D Screen Crossmatch ([facility]) See Detail 11/13/23 11/13/23 11/13/23 09:00 09:00 09:00 WBC RBC Hgb Hct MCV MCH MCHC Plt Count Diff Slide Review INR APTT Fibrinogen Sodium Potassium Chloride Carbon Dioxide Anion Gap BUN Creatinine 0.4 L Estimated Creat Clear 158.21 158.21 Estimated GFR 127 127 Glucose 100 Calcium 6.4 L Magnesium 5.9 H* Total Bilirubin 0.4 AST 151 H ALT Alkaline Phosphatase Total Protein Albumin Blood Type Antibody Screen Antibody Identification Screen Crossmatch ([facility]) 11/13/23 11/13/23 11/13/23 09:00 09:00 16:07 WBC 15.90 H RBC 3.73 L Hgb 11.3 L Hct 32.2 L MCV 86 MCH 30 MCHC 35 Plt Count 215 Diff Slide Review INR 0.94 APTT 28 Fibrinogen 261 Sodium Potassium Chloride Carbon Dioxide Anion Gap BUN < 2 L Creatinine 0.4 L Estimated Creat Clear 158.21 Estimated GFR 127 Glucose Calcium Magnesium 5.8 H* Total Bilirubin AST 150 H 183 H ALT 240 H 244 H 296 H Alkaline Phosphatase 145 Total Protein 5.9 L Albumin 3.3 Blood Type Antibody Screen Antibody Identification Screen Crossmatch ([facility]) 11/13/23 11/14/23 11/14/23 21:55 04:05 06:21 WBC 24.70 H 17.31 H RBC 3.65 L 3.13 L Hgb 11.0 L 9.6 L 9.1 L Hct 32.1 L 27.6 L MCV 88 88 MCH 30 31 MCHC 34 35 Plt Count 262 223 Diff Slide Review INR APTT Fibrinogen Sodium Potassium Chloride Carbon Dioxide Anion Gap BUN < 2 L < 2 L Creatinine 0.4 L 0.4 L Estimated Creat Clear 158.21 158.21 Estimated GFR 127 127 Glucose Calcium Magnesium 6.6 H* 5.9 H* Total Bilirubin AST 241 H 136 H ALT 305 H 251 H Alkaline Phosphatase Total Protein Albumin Blood Type Antibody Screen Antibody Identification Screen Negative Crossmatch ([facility])
[2023-11-14] MEDS: LACTATED RINGERS 1000 ML 1,000 ML 125 ML IV (09:51)
[2023-11-14 10:49] LABS: Hematocrit 29.7 % (33.0-51.0); Hemoglobin* 10.1 gm/dL (12.0-16.0); Mean Corpuscular HGB Conc 34 gm/dL (32-36); Mean Corpuscular Hemoglobin 30 pg (26-34); Mean Corpuscular Volume 89 fL (80-100); Platelet Count* 242 K/uL (140-440); Red Blood Count 3.33 m/uL (4.00-5.20); White Blood Count* 16.92 K/uL (4.50-11.00)
[2023-11-14 10:51] LABS: Slide Review Reflex No
[2023-11-14 11:08] LABS: Alanine Aminotransferase* 264 U/L (4-35); Aspartate Amino Transferase* 124 U/L (12-35); Creatinine* 0.4 mg/dL (0.5-1.5); Est. Creatinine Clearance* 158.21; Estimated Glomerular Filt Rate 127 ml/min
[2023-11-14 11:13] LABS: Blood Urea Nitrogen* < 2 mg/dL (5-24)
[2023-11-14] MEDS: OMEPRAZOLE 20 MG CAPSULE DR 40 MG PO (11:33)
[2023-11-14] MEDS: MAGNESIUM Infusion 40 GM/1,000 ML IV.SOLN IVPB (13:55)
--- NOTE | 2023-11-14 15:07 | PM.ANPOST ---
Post Anesthesia Note Post Anesthesia Note Patient seen: Inpatient Respiratory Status: adequate Cardiovascular Status: adequate Mental Status: baseline Pain: adequate Temp: baseline Anesthetic awareness: N/A Complications: none Follow care: none
[2023-11-14 16:28] LABS: Hematocrit 28.4 % (33.0-51.0); Hemoglobin* 9.6 gm/dL (12.0-16.0); Mean Corpuscular HGB Conc 34 gm/dL (32-36); Mean Corpuscular Hemoglobin 31 pg (26-34); Mean Corpuscular Volume 91 fL (80-100); Platelet Count* 238 K/uL (140-440); Red Blood Count 3.13 m/uL (4.00-5.20)
[2023-11-14 16:42] LABS: Slide Review Reflex No
[2023-11-14 16:57] LABS: Creatinine* 0.5 mg/dL (0.5-1.5); Est. Creatinine Clearance* 126.57; Estimated Glomerular Filt Rate 120 ml/min
[2023-11-14 16:58] LABS: Alanine Aminotransferase* 214 U/L (4-35); Aspartate Amino Transferase* 96 U/L (12-35); Blood Urea Nitrogen* 4 mg/dL (5-24)
[2023-11-15] VITALS: BP 110/67; PULSE 100; RESP 18; TEMP 36.9; O2SAT 97
[2023-11-15 03:57] VITALS: BP 129/77; PULSE 100; RESP 18
[2023-11-15] MEDS: IBUPROFEN 600 MG TABLET PO (05:11)
[2023-11-15 05:31] LABS: Hemoglobin* 9.6 gm/dL (12.0-16.0); Mean Corpuscular HGB Conc 33 gm/dL (32-36); Mean Corpuscular Hemoglobin 31 pg (26-34); Mean Corpuscular Volume 92 fL (80-100); Platelet Count* 232 K/uL (140-440); Red Blood Count 3.15 m/uL (4.00-5.20); White Blood Count* 14.32 K/uL (4.50-11.00)
[2023-11-15 05:38] LABS: Slide Review Reflex No
[2023-11-15 05:42] LABS: Creatinine* 0.4 mg/dL (0.5-1.5); Est. Creatinine Clearance* 158.21; Estimated Glomerular Filt Rate 127 ml/min
[2023-11-15 05:43] LABS: Alanine Aminotransferase* 182 U/L (4-35); Aspartate Amino Transferase* 56 U/L (12-35); Blood Urea Nitrogen* 7 mg/dL (5-24)
[2023-11-15] MEDS: ZOLPIDEM 5 MG TABLET PO (07:08)
[2023-11-15 07:09] VITALS: BP 120/76; PULSE 60; RESP 18
--- NOTE | 2023-11-15 08:12 | PM.OBPNVD1 ---
OB - PN:Subj Subjective Time Seen by Provider: 08:13 Date Seen: 11/15/23 Interval history: Overnight, there was concern for patient's mental health by RN. Per report from RN, Juana has been getting increasingly agitated overnight. She has been moving furniture in the room to help get her in a more comfortable position for sleep. There had been confrontations between Juana and her and the healthcare team due to disagreement on the level of interventions she is receiving. Juana was in bed when I presented to round around 7 am. She had just received 5mg of Ambien. She expressed to me she is suffering greatly due to the events of her . She feels she has no control over her life or her body anymore. She currently she denies SI/HI. She is mentating appropriately. We did agree it would be beneficial to stay at least one more night given that I'm concern for her mental wellbeing when she leaves. She's a very high risk for depression and psychosis. She agrees to letting me place a mental health referral. Denies any persistent headache, vision changes, SOB, right upper quadrant/epigastric pain, or rapidly expanding edema. Given that her BP has been normal and her LFTs are trending down, will let her convalesce and see if she's able to have sustained sleep. OB - PN: Obj Exam Physical Exam: Vital signs: Temp Pulse Resp BP Pulse Ox O2 Del Method 98.4 F 60 18 120/76 97 Room Air 11/15/23 00:00 11/15/23 07:09 11/15/23 07:09 11/15/23 07:09 11/15/23 00:00 11/15/23 00:00 Narrative: Physical exam: General: Juana appears distressed over her mental state Psych: Alert and oriented x4, full affect. Neuro: Mentating appropriately and no focal neuro deficit. HEENT: Normocephalic, atraumatic Neck: No cervical adenopathy, no thyromegaly Heart: Regular rate and rhythm, no murmur rub or gallop Lungs: Clear to auscultation bilaterally Abdomen: Normoactive bowel sounds, soft, no tenderness, rebound, or guarding Skin: No lesions or rashes Lower extremities: Trace lower extremity edema bilaterally. Pelvic exam: Scant bleeding on pad. OB - PN: Obj Data Labs Labs: Laboratory Results - last 24 hr 11/14/23 11/14/23 11/14/23 06:21 10:43 15:52 WBC 16.92 H 15.50 H RBC 3.33 L 3.13 L Hgb 10.1 L 9.6 L Hct 29.7 L 28.4 L MCV 89 91 MCH 30 31 MCHC 34 34 Plt Count 242 238 BUN < 2 L 4 L Creatinine 0.4 L 0.5 Estimated Creat Clear 158.21 126.57 Estimated GFR 127 120 AST 124 H 96 H ALT 264 H 214 H Screen Negative 11/15/23 05:15 WBC 14.32 H RBC 3.15 L Hgb 9.6 L Hct 29.0 L MCV 92 MCH 31 MCHC 33 Plt Count 232 BUN 7 Creatinine 0.4 L Estimated Creat Clear 158.21 Estimated GFR 127 AST 56 H ALT 182 H Screen OB - PN: A/P Delivery Assessment and Plan (1) Preeclampsia, severe: Status: Acute Assessment and Plan: - Blood pressure within normal limits - I do not anticipate her needing antihypertensive medication - Transaminitis down trending (2) Obstetrical trauma, : Status: Acute Assessment and Plan: - Juana is having symptoms of depression/anxiety and insomnia - Her main priority is undisturbed sleep currently. - Will place psych referral - Will hold discharge until her mental health status improves.
[2023-11-15] MEDS: hydrOXYzine pamoate 25 MG CAPSULE 50 MG PO (09:10)
[2023-11-15] MEDS: OMEPRAZOLE 20 MG CAPSULE DR 40 MG PO (09:11)
[2023-11-15 14:32] LABS: Magnesium* 1.9 mg/dL (1.5-2.6)
--- NOTE | 2023-11-15 14:59 | P.EN_ITS ---
Chart Event Note Time Seen by Provider: 12:15 Date Seen: 11/15/23 Chart Event Note: I was asked to assess patient has she has been unable to sleep despite 5 mg of Ambien and 50 mg of hydroxyzine. Additionally, there is concern is she getting more agitated. RN and I presented at bedside to talk to Juana. Her , Trung, is present with her. Juana was in great emotional distress at the time. She had rapid and pressured speech expressing that she has lost control and lost the fight against her spiritual demons. She reports that her body won't let her sleep because she is trying to regain some kind of control over her birthing experience and her body. I discussed with her about depression and psychosis. She relates to a lot of the symptoms that I was describing. She repeated told me I'm not safe to go home. She is amenable to inpatient psychiatric care. During this second conversation with Juana, she description of her experience focused significantly on religiosity, which was not the case when I round on her this AM. Juana kept repeating I am in a mormon cesar and the demons are winning. She reports feeling the darkness coming over her and leading her away from God. She expressed that she knows she should let God have control but she wants it'. [place] and Juana then began an argument about zackary in which caused Juana great distress. I redirected them to our goals of care which is to make sure she is safe and to alleviate her suffering. Trung expressed that this is a spiritual and mormon problem and not a medical problem, although he would be open to a transfer so she can help the psychiatric help she needs. He asked for a zackary based program. I did inform them that I'm unsure of if there is a specific zackary based inpatient psychiatric care facility but reassured them that any facility should try their best to accommodate their spiritual beliefs. After leaving the room, I called [facility] and they said their age cutoff for admission is 29 y/o. [facility] said they do not have any psychiatric beds in the entire [facility] system. Her twins are at [facility] 1200 - In the mist of coordinating her care, Juana can be heard screaming Help me! and Get the demons out!. A code Zack was called and our response team presented to Juana's room immediately. Her was performing a mormon ritual through praying over Juana in a different language. Juana verbalized that this is something she desires to happen to restore her zackary in God. I expressed concern for psychosis, which she and her adamantly denied. Juana state I'm like this because I haven't slept for 4 days!. They had requested to door be closed so they can have privacy. They had attempted to close the door and prevented the healthcare team from entering. Dr. White, who responded to the code [place] and I did inform them on multiple occasion we cannot leave her unsupervised. Once security arrived, they were willing to keep the door opened. Both Dr. White and I assessed Juana and she was ambulating unassisted around the room without focal neuro deficit. Juana declined Zyprexa during this episode. I added a TSH and mag level to her AM labs to rule out any organic cause of her insomnia and behavior change. Juana was able to fall asleep after 1 hour of hymns and prayers while the care team monitored her outside the door. Trung was upset that we were lingering. I explained that it due to the room not having a monitor. He refused to let us place monitor in the room. Unfortunately, that means that she needs 1:1 sitter. He expressed that we are being discriminatory due to their zackary and disrupting their prayer session to help Juana heal. He said he was in contact with their hoisting machine operator to ensure their mormon rights are being met. Notably, our patient advocate and faculty administrator health safety and environment manager were present to help determine how best to advocated for them and keep Juana safe. 1950 - Juana awoke and requested discharge. She feels refreshed and refocused. She stated that she needed a nap to reorient her and now she needed to be home with her children. I asked for a mental health evaluation via DEC assessment. We were unable to do a full mental health assessment to try an facilitate their prayer session and uninterrupted sleep. They were initially amenable but requested to leave AMA when she found out that the assessment wasn't until 2114. Juana and her approached the nursing station and demanded her RhoGAM injection so they can leave AMA. They were not willing to go back into their room to discuss the matter further. I told Juana that my goal is for her to be evaluated voluntarily and I can't, in good conscience, let her leave, even with signing AMA papers. If she is unwilling, I will place a 72 hr hold to assured safety. I asked them again to relocate to their room in order to respect the staff and other patients on the unit. They agreed to this. Her night RN, Mer, was with me to for the family meeting. Juana and Trung expressed that there has been a break of trust as they felt their baptist was respected and that is why they are having difficulties acquiescing to our recommendations currently. Specifically, there were multiple people coming into their room to assess their situation (our reinaldo Dixon team) and many people lingered and did not respect their privacy. They also took offense to the sitter outside their room. I told them from the care team's perspective, they had agreed with trying to find a higher level of psychiatric care for Juana and whilst doing so, we all heard her scream help me! and sounded in distress. Hence, why reinaldo Dixon was called. We were not aware that they were going to try and perform any ritual and we could not guarantee that the situation was safe at the time so multiple people needed to be there to assess. They both acknowledge how troublesome the situation appeared from the perspective of people who were not aware of the goals and intentions. Juana said she was screaming help me because she was asking her his spiritual help and guidance. They expressed that have acquiesce to our recommendations with regards to delivery timing, preeclampsia with severe features management, her hemorrhage management, and also to the numerous labs and assessments that have been performed thus far. They both recognized that she needed medical care due to her high risk and delivery. Juana said the lost of control and having her twins taken from her body abruptly and then having them taken away physically due to the transfer is what caused her emotional dysregulation. I empathized with her predicament. Due to everything that has happened to her is why it is so important we assess for safety and make sure there are follow up plans in place. They do not believe in western medicine approach to mental health care. Juana is adamant about not seeing a mental healthcare provider outside of her zackary group and she will not take any medications. I acknowledge that how she chose to approach treatment is her prerogative. My goal to make sure she is not an imminent danger to herself or others and I do not feel we have adequately assessed that. She denies SI/HI. She is conversing with me appropriately, her thoughts are organized and linear. She has insight which she uses to make judgement about what is best for her and her family at this moment. She decided to wait for the JUL-assessment. 2114 - I gave report to Tessy Stone who is the psychologist that will be conducting her mental health assessment. 2144 - Tessy Stone completed her assessment and deemed that Juana is competent, no acutely psychotic, and is not a danger to herself or others currently. Per her report, Juana is future oriented and has a robust support system through her in-laws (who live in the [facility]) and her zackary community. Juana declined urgent therapy appointment but they did make a safety plan together. Tessy said she gave Juana her phone # to call if she is in need of further assistance. She thinks Juana is safe for discharge from a mental health stand point. Juana requests Dr. Mendiola for her 1 week check for her pre- eclampsia with severe features. Appointment will be made prior to discharge.
[2023-11-15 17:52] VITALS: BP 134/86; PULSE 90; RESP 16; O2SAT 97
--- NOTE | 2023-11-17 18:13 | P.DS_ITS ---
DS: Providers Provider Time Seen by Provider: 22:00 Date Seen: 11/15/23 Date of admission: 11/12/23 17:24 Primary care physician: Not a Local Provider Admitting Clinician: Eveline Domínguez MD Attending Physician on discharge: Eveline Domínguez MD Date of Discharge: 11/17/23 DS: Diagnosis Discharge Diagnosis (1) Obstetrical trauma, : Status: Acute (2) Anemia due to acute blood loss: Status: Acute (3) Delivery of twins, both live: Status: Acute (4) Breech extraction, delivered: Status: Acute (5) (normal spontaneous vaginal delivery): Status: Acute (6) Preeclampsia, severe: Status: Acute Exam Narrative: Exam Narrative: Physical exam: General: No acute distress Psych: Alert and oriented x3, full affect HEENT: Normocephalic, atraumatic Lungs: Unlabored breathing Neuro: No focal deficit. Mentating appropriately Pelvic exam: Deferred OB - DS: Summary Hospital Course Hospital Course: The patient is a 43 year old G 11 P 7037 at 35 weeks gestation that was admitted to the Center on 11/12/23 for induction of labor due to severe preeclampsia. She had an complicated vaginal delivery due to increased blood loss requiring multiple uterotonics and a LINDA intrauterine of device. She delivered a viable male infants x 2 with twin B requiring breech extraction. She is planning on breast feeding but since both twins were transferred to a higher level NICU, they have been receiving bottles. She received 24 hours of magnesium for seizure prophylaxis. The most significant feature of her severe preeclampsia was transaminitis. Her AST peaked at 241 and her ALT peaked at 305. Serial labs showed that her LFTs were downtrending with it being the lowest this morning (AST 56 and ALT 182). the patient has done poor due to her complications, insomnia, sleep depravation delirium, anxiety and depression. She declined referral to mental healthcare providers and medications. She underwent a DEC assessment by a psychologist after concerning behavior while being admitted (see previous note) and was deemed competent and not in immediate danger to herself or anyone else. A safety plan was made and recommendation was for discharge if medically stable. Juana strongly desired discharge. I recommended she see us this week for blood pressure check and repeat labs due to her transaminitis. Review alarm symptoms for when to call/present to the ED. Denies any persistent headache, vision changes, SOB, right upper quadrant/epigastric pain, or rapidly expanding edema. Patient will take her BP at home. Parameters given. She is to call if her BP is persistently over 140/90s as she might need antihypertensive medication and if BP is over 160/110, we will most likely ask her to come in to be evaluated. RhoGAM given. Time spent discussing smoking cessation with patient: more than 10 minutes Peripartum Data Procedures: Procedures Operation Date: 11/13/23 12:15 <No data on this case meets the specified criteria> [place] Gender: Male Time Spent with Patient Time attestation: Total time spent providing and/or coordinating discharge services: Discharge Plan Discharge Disposition: Home, Self-Care Date of Admission: 11/12/23 17:24 Primary Care Provider: Provider,Not a Local Condition: Stable Anticipated Discharge Date/Time: 11/15/23 22:05 Discharge Medications: Continued calcium carbonate [Calcium 600] 600 mg calcium (1,500 mg) tablet 600 mg PO QDAY omeprazole 40 mg capsule,delayed release(DR/EC) 40 mg PO QDAY Qty: 14 0RF DHA 200 mg capsule 200 mg PO DAILY ferrous gluconate [Ferate] 240 mg (27 mg iron) tablet 240 mg PO QDAY ondansetron HCl 4 mg tablet 4 mg PO Q6H PRN (Reason: nausea and vomiting) Qty: 30 0RF Discontinued progesterone micronized 200 mg capsule 200 mg PO QHS aspirin 81 mg capsule 81 mg PO QDAY Discharge Orders: Discharge Order (Routine); Ordered 11/15/23 Ordered By: Ladan Tobias Patient Education: OB Vaginal/Breast Feeding Activity Level: No Restrictions Discharge Diet: Regular Follow Up Appointments: Provider,Not a Local [Primary Care Provider] - Malena Mendiola MD [Staff Physician] - 11/17/23 11:15 am Forms: [employer] Info Instructions
== END 2023-11-15 22:37 | disposition home or self-care (01) | DRG 806 ==
LOC: OB OUT 17:24 → OB 17:24
PROVIDERS: Obstetrics & Gynecology; Admitting Provider Obstetrics & Gynecology; Visit Provider Obstetrics & Gynecology
PROC: 10E0XZZ Delivery of Products of Conception, External Approach (ICD-10-PCS; principal; 2023-11-13 12:00)
DX: O14.14 Severe pre-eclampsia complicating childbirth (principal); D62 Acute posthemorrhagic anemia; Z37.2 Twins, both liveborn; F05 Delirium due to known physiological condition; O90.81 Anemia of the puerperium; O30.043 Twin pregnancy, dichorionic/diamniotic, third trimester; O32.1XX2 Maternal care for breech presentation, fetus 2; O62.2 Other uterine inertia; O99.345 Other mental disorders complicating the puerperium; G47.00 Insomnia, unspecified; Z3A.35 35 weeks gestation of pregnancy; F41.9 Anxiety disorder, unspecified; F53.0 Postpartum depression
CPT/HCPCS: 01967; 36415; 59200; 76815; 80053; 80074; 82565; 83735; 84443; 84450; 84460; 84520; 85018; 85027; 85384; 85461; 85610; 85730; 86592; 86850; 86870; 86880; 86900; 86901; 86922; 88307; A9270; J0665; J0690; J1100; J2371; J2405; J2791; J3475; J7120